=== PATIENT | male | born 1970 | race Caucasian/White ===

== ENCOUNTER 2019-04-10 02:39 | Emergency (ER) | payer MEDICAID, OTHER ==
[~2019-04-10] VITALS: Ht 177.8 cm; Wt 82.0 kg
[~2019-04-10 02:39] MED LIST: HYDR-523 PO; TRAM50TA3 PO
[2019-04-10] MEDS ORDERED: SODIUM CHLORIDE 0.9% 1,000 ML IV ONE (05:09)
[2019-04-10] MEDS ORDERED: ONDANSETRON HCL 4MG/2ML INJ IV STA (05:09)
[2019-04-10 05:32] LABS: BASOPHILS % 1.2 % (0.0-2.0); EOSINOPHILS % 4.3 % (0.0-5.0); HEMOGLOBIN. 12.2 g/dL (14.0-18.0); LYMPHOCYTES % 31.2 % (20.0-50.0); MEAN CORPUSCULAR HEMOGLOBIN 30.5 pg (28.0-32.0); MEAN CORPUSCULAR VOLUME 90.1 fL (80.0-94.0); MEAN PLATELET VOLUME 8.2 fl (7.4-10.4); MONOCYTES % 8.3 % (2.0-8.0); PLATELET 106 x1000/uL (130-400); RED BLOOD CELL COUNT 3.99 mill/uL (4.7-6.1); RED CELL DISTRIBUTION WIDTH 17.9 % (11.6-14.6)
[2019-04-10 05:37] LABS: CHLORIDE 108 mEq/L (98-107)
[2019-04-10 05:51] LABS: ETHANOL BLOOD 297 mg/dL
[2019-04-10 13:11] VITALS: BP 110/77
== END 2019-04-10 13:14 | disposition home or self-care (01) ==
LOC: ER 02:53
DX: T51.0X1A Toxic effect of ethanol, accidental (unintentional), initial encounter (principal); S09.8XXA Other specified injuries of head, initial encounter; Y90.8 Blood alcohol level of 240 mg/100 ml or more; W01.0XXA Fall on same level from slipping, tripping and stumbling without subsequent striking against object, initial encounter; Y93.89 Activity, other specified; Y92.488 Other paved roadways as the place of occurrence of the external cause
CPT/HCPCS: 36415; 70450; 80053; 80320; 83690; 85025; 96361; 96374; 99284; J2405; J7030; Z7610; G0480

== ENCOUNTER 2019-06-06 20:02 | Emergency (ER) | payer MEDICAID, OTHER ==
[~2019-06-06] VITALS: Ht 172.7 cm; Wt 91.0 kg
[2019-06-06] MEDS ORDERED: FOLIC ACID 1 MG, THIAMINE HCL 100 MG, MVI, ADULT NO.1 10 ML in DEXTROSE 5% WATER 1,000 ML IV ONE ×4 (20:45)
[2019-06-06] MEDS ORDERED: ONDANSETRON HCL 4MG/2ML INJ IV ONE (20:45)
[2019-06-06 21:04] LABS: BASOPHILS % 0.8 % (0.0-2.0); EOSINOPHILS % 4.8 % (0.0-5.0); HEMATOCRIT. 34.4 % (42.0-52.0); HEMOGLOBIN. 11.9 g/dL (14.0-18.0); LYMPHOCYTES % 28.5 % (20.0-50.0); MEAN CORPUSCULAR HEMOGLOBIN 30.6 pg (28.0-32.0); MEAN CORPUSCULAR VOLUME 88.4 fL (80.0-94.0); MEAN PLATELET VOLUME 9.1 fl (7.4-10.4); MONOCYTES % 12.4 % (2.0-8.0); NEUTROPHILS % 53.5 % (40.0-76.0); PLATELET 88 x1000/uL (130-400); RED BLOOD CELL COUNT 3.89 mill/uL (4.7-6.1); RED CELL DISTRIBUTION WIDTH 17.9 % (11.6-14.6)
[2019-06-06 21:10] LABS: CHLORIDE 111 mEq/L (98-107)
[2019-06-06 21:14] LABS: ETHANOL BLOOD 149 mg/dL
[2019-06-06] MEDS ORDERED: FAMOTIDINE 20MG/2ML VIAL IV ONE (22:15)
[2019-06-07 11:52] VITALS: BP 115/83
== END 2019-06-07 11:52 | disposition home or self-care (01) ==
LOC: ER 20:02
DX: T51.0X1A Toxic effect of ethanol, accidental (unintentional), initial encounter (principal); G92 Toxic encephalopathy; N39.0 Urinary tract infection, site not specified; S09.8XXA Other specified injuries of head, initial encounter; X58.XXXA Exposure to other specified factors, initial encounter; Y93.89 Activity, other specified; Y92.488 Other paved roadways as the place of occurrence of the external cause
CPT/HCPCS: 36415; 70450; 80048; 80076; 80307; 80320; 80329; 83690; 85025; 96365; 96375; 99284; J2405; J3411; J3490; J7070; Z7610; G0480